=== PATIENT | female | born 2005 | race Two or more races ===

== ENCOUNTER 2023-04-14 09:44 | Emergency (ER) | payer OTHER ==
[~2023-04-14] VITALS: Ht 154.9 cm; Wt 68.0 kg
== END 2023-04-14 13:57 | disposition home or self-care (01) ==
LOC: ER 09:44
DX: U07.1 COVID-19 (principal)

== ENCOUNTER 2023-04-20 09:10 | Emergency (ER) | payer OTHER ==
[~2023-04-20] VITALS: Ht 160 cm; Wt 68.5 kg
[2023-04-20] MEDS ORDERED: CELEBREX200MG PO (09:28)
== END 2023-04-20 13:35 ==
LOC: ER 09:11 → EMR PED 09:22 → ER 09:22
DX: R05.3 Chronic cough (principal); R05.9 Cough, unspecified